=== PATIENT | male | born 1990 | race Caucasian/White ===

== ENCOUNTER 2018-06-15 23:06 | Emergency (ER) | payer SELFPAY ==
[2018-06-15] MEDS ORDERED: Lidocaine 1% w/Epinephrine 1:100K 20 ML VIAL ONE (23:19)
[2018-06-16] MEDS ORDERED: traMADol HCl 50 MG TAB ONE (00:09)
== END 2018-06-16 00:28 | disposition home or self-care (01) ==
LOC: ERS 23:06
DX: L02.411 Cutaneous abscess of right axilla (principal); F17.210 Nicotine dependence, cigarettes, uncomplicated
CPT/HCPCS: 10060; 87070; 87077; 87186; 87205; J2001

== ENCOUNTER 2018-07-17 16:45 | Emergency (ER) | payer SELFPAY ==
[2018-07-17] MEDS ORDERED: Acetaminophen 500 MG TAB ONE (17:27)
== END 2018-07-17 17:29 | disposition home or self-care (01) ==
LOC: ERS 16:45
DX: K04.7 Periapical abscess without sinus (principal); F17.210 Nicotine dependence, cigarettes, uncomplicated
CPT/HCPCS: 41800

== ENCOUNTER 2021-01-08 14:35 | Emergency (ER) | payer SELFPAY | END 2021-01-08 16:10 | LOC: ERS 14:35 | DX: S40.012A Contusion of left shoulder, initial encounter (principal); F17.210 Nicotine dependence, cigarettes, uncomplicated; Y04.0XXA Assault by unarmed brawl or fight, initial encounter ==